=== PATIENT | male | born 1960 | race Caucasian/White ===

== ENCOUNTER 2019-01-08 14:48 | Inpatient (IN) | payer OTHER ==
[2019-01-08] MEDS: CEFEPIME 2GM/50 ML (PMX) 50 ML IVPB (18:22)
[2019-01-08] MEDS: SODIUM CHLORIDE 0.9% 1L BAG IV* (18:23)
[2019-01-08] MEDS: ACETAMINOPHEN 325 MG TAB PO (18:23)
[2019-01-08 18:33] LABS: ADD MAN DIFF? NO
[2019-01-08 18:36] LABS: WHITE BLOOD COUNT 13.7 10^3/ul (4.8-10.8)
[2019-01-08 18:36] LABS: BASOPHILS % 0.3 % (0.0-2.0); EOSINOPHILS % 0.1 % (0.0-7.0); HEMATOCRIT 41.8 % (42.0-52.0); HEMOGLOBIN 13.3 g/dl (14.0-18.0); LYMPHOCYTES # 1.2 10^3/ul (0.8-2.9); LYMPHOCYTES % 8.4 % (15.0-51.0); MEAN CORPUSCULAR HEMOGLOBIN 24.6 pg (29.0-33.0); MEAN CORPUSCULAR HGB CONC 31.8 g/dl (32.0-37.0); MEAN CORPUSCULAR VOLUME 77.3 fl (82.0-101.0); MEAN PLATELET VOLUME 10.7 fl (7.4-10.4); MONOCYTE # 0.8 10^3/ul (0.3-0.9); MONOCYTES % 5.5 % (0.0-11.0); NEUTROPHIL # 11.7 10^3/ul (1.6-7.5); PLATELET COUNT 180 10^3/UL (140-415); RED BLOOD COUNT 5.41 10^6/ul (4.70-6.10); RED CELL DISTRIBUTION WIDTH 15.8 % (11.5-14.5)
[2019-01-08 18:40] LABS: PROTIME 12.3 Sec (11.9-14.9)
[2019-01-08 18:41] LABS: PARTIAL THROMBOPLASTIN TIME 27.6 Sec (23.0-35.0)
[2019-01-08 18:49] LABS: ALANINE AMINOTRANSFERASE 40 IU/L (13-69); ALBUMIN 3.8 g/dl (3.3-4.9); ALBUMIN/GLOBULIN RATIO 1.18; ALKALINE PHOSPHATASE 183 IU/L (42-121); ANION GAP 11 (5-13); ASPARTATE AMINO TRANSFERASE 59 IU/L (15-46); BILIRUBIN,INDIRECT 0.2 mg/dl (0-1.1); BILIRUBIN,TOTAL 0.2 mg/dl (0.2-1.3); BLOOD UREA NITROGEN 38 mg/dl (7-20); CALCIUM 9.7 mg/dl (8.4-10.2); CARBON DIOXIDE 22 mmol/L (21-31); CHLORIDE 104 mmol/L (97-110); CREATININE 1.31 mg/dl (0.61-1.24); Estimated GFR 56 mL/min (>60); GLUCOSE 356 mg/dl (70-220); POTASSIUM 4.6 mmol/L (3.5-5.1); SODIUM 137 mmol/L (135-144)
[2019-01-08] MEDS: FUROSEMIDE 40 MG INJ IV (19:00)
[2019-01-08 19:01] LABS: TROPONIN-I 0.018 ng/ml (0.000-0.120)
[2019-01-08] MEDS: VANCOMYCIN 1 GM (PMX) 250 ML IVPB (19:06)
[2019-01-08] MEDS: ALBUTEROL 0.5% (NEB) 2.5 MG/0.5 ML AMP INH (19:37)
[2019-01-08 19:39] LABS: B-TYPE NATRIURETIC PEPTIDE 2490 PG/ML (0-125)
[2019-01-08] MEDS ORDERED: ACETAMINOPHEN 325 MG TAB PO (21:30)
[2019-01-08] MEDS ORDERED: ONDANSETRON 4 MG INJ IV (21:30)
[2019-01-08 21:56] LABS: ADD UMIC YES; UR AMORPHOUS CRYSTAL FEW /HPF (NONE SEEN); UR ASCORBIC ACID NEGATIVE (NEGATIVE); UR BACTERIA FEW /HPF (NONE SEEN); UR BILIRUBIN (Dip) NEGATIVE (NEGATIVE); UR BLOOD (Dip) 2+ mg/dL (NEGATIVE); UR CLARITY SLIGHTLY CLOUDY (CLEAR); UR COLOR YELLOW (YELLOW); UR GLUCOSE (Dip) 1+ mg/dL (NEGATIVE); UR HYALINE CAST FEW /HPF (NONE SEEN); UR KETONES (Dip) NEGATIVE (NEGATIVE); UR LEUKOCYTE ESTERASE (Dip) NEGATIVE Leu/ul (NEGATIVE); UR NITRITE (Dip) NEGATIVE (NEGATIVE); UR RBC 11 /HPF (0-5); UR SPECIFIC GRAVITY (Dip) 1.013 (1.003-1.030); UR TOTAL PROTEIN (Dip) 2+ mg/dl (NEGATIVE); UR UROBILINOGEN (Dip) NEGATIVE (NEGATIVE); UR WBC 2 /HPF (0-5)
[2019-01-09 00:06] LABS: LACTIC ACID 2.1 mmol/L (0.5-2.0)
[2019-01-09] MEDS: morphine 4 MG/ML VIAL IV (01:41)
[2019-01-09] MEDS ORDERED: NITROGLYCERIN (SL) 0.4 MG TAB SL (05:00)
[2019-01-09] MEDS ORDERED: ALPRAZOLAM 0.25 MG TAB PO (05:00)
[2019-01-09] MEDS ORDERED: NACL 0.9% 3 ML SYG IV (05:00)
[2019-01-09] MEDS ORDERED: GLUCOSE GEL 15 GRAM TUBE BUCCAL (06:00)
[2019-01-09] MEDS ORDERED: DEXTROSE 50% 50 ML SYRINGE IV ×2 (06:00)
[2019-01-09] MEDS ORDERED: GLUCAGON 1 MG INJ IM (06:00)
[2019-01-09] MEDS ORDERED: GLUCOSE GEL 15 GRAM TUBE PO ×2 (06:00)
[2019-01-09 06:05] LABS: ADD MAN DIFF? NO
[2019-01-09 06:09] LABS: BASOPHIL # 0.1 10^3/ul (0.0-0.1); BASOPHILS % 0.3 % (0.0-2.0); HEMATOCRIT 36.7 % (42.0-52.0); HEMOGLOBIN 11.5 g/dl (14.0-18.0); LYMPHOCYTES # 1.7 10^3/ul (0.8-2.9); LYMPHOCYTES % 11.5 % (15.0-51.0); MEAN CORPUSCULAR HEMOGLOBIN 24.4 pg (29.0-33.0); MEAN CORPUSCULAR HGB CONC 31.3 g/dl (32.0-37.0); MEAN CORPUSCULAR VOLUME 77.8 fl (82.0-101.0); MEAN PLATELET VOLUME 11.5 fl (7.4-10.4); MONOCYTE # 0.8 10^3/ul (0.3-0.9); MONOCYTES % 5.3 % (0.0-11.0); NEUTROPHIL # 11.8 10^3/ul (1.6-7.5); NEUTROPHILS % 81.9 % (39.0-77.0); PLATELET COUNT 172 10^3/UL (140-415); RED BLOOD COUNT 4.72 10^6/ul (4.70-6.10); RED CELL DISTRIBUTION WIDTH 16.1 % (11.5-14.5)
[2019-01-09 06:09] LABS: WHITE BLOOD COUNT 14.5 10^3/ul (4.8-10.8)
[2019-01-09] MEDS: traMADol 50 MG TAB PO ×2 (06:20→21:45)
[2019-01-09 06:29] LABS: HEMOGLOBIN A1C 11.8 % (0-5.9)
[2019-01-09 06:32] LABS: CREATINE KINASE 59 IU/L (23-200)
[2019-01-09 06:44] LABS: CK INDEX 1.9; CK-MB 1.14 ng/ml (0.0-2.4); TROPONIN-I 0.037 ng/ml (0.000-0.120)
[2019-01-09 07:38] LABS: ALANINE AMINOTRANSFERASE 56 IU/L (13-69); ALBUMIN 3.2 g/dl (3.3-4.9); ALKALINE PHOSPHATASE 138 IU/L (42-121); ANION GAP 10 (5-13); ASPARTATE AMINO TRANSFERASE 48 IU/L (15-46); BLOOD UREA NITROGEN 42 mg/dl (7-20); CALCIUM 8.7 mg/dl (8.4-10.2); CARBON DIOXIDE 26 mmol/L (21-31); CHLORIDE 100 mmol/L (97-110); CHOL/HDL RATIO 4.3 RATIO; CHOLESTEROL 147 mg/dl (100-200); CREATININE 1.82 mg/dl (0.61-1.24); Estimated GFR 38 mL/min (>60); GLUCOSE 330 mg/dl (70-220); HDL CHOLESTEROL 34 mg/dl (30-78); LDL CHOLESTEROL,CALCULATED 80 mg/dl; MAGNESIUM 1.9 mg/dl (1.7-2.5); POTASSIUM 5.1 mmol/L (3.5-5.1); SODIUM 136 mmol/L (135-144); TOTAL PROTEIN 6.1 g/dl (6.1-8.1); TRIGLYCERIDES 167 mg/dl (0-149)
[2019-01-09] MEDS: ALBUTEROL/IPRATROPIUM (NEB) 3 ML AMP HHN (08:40)
[2019-01-09] MEDS: INSULIN ASPART [NOVOLOG] 3 ML PEN SC ×7 (08:54→21:00)
[2019-01-09] MEDS: RANOLAZINE (SR) 500 MG TAB PO ×2 (08:56→21:43)
[2019-01-09] MEDS: ISOSORBIDE DINITRATE 20 MG TAB PO ×3 (08:56→21:00)
[2019-01-09] MEDS: VALPROIC ACID 250 MG CAP PO ×2 (08:57→21:44)
[2019-01-09] MEDS: GABAPENTIN 300 MG CAP PO ×3 (08:57→21:44)
[2019-01-09] MEDS: FISH OIL 1,000 MG CAP PO ×2 (08:58→21:44)
[2019-01-09] MEDS: ASPIRIN 81 MG TAB PO (08:59)
[2019-01-09] MEDS: FUROSEMIDE 40 MG TAB PO (08:59)
[2019-01-09] MEDS: INSULIN GLARGINE [LANTus] (100 UNITS/ML) SYG SC (09:13)
[2019-01-09] MEDS: HEPARIN 5,000 UNIT/1 ML VIAL SC ×2 (09:14→21:56)
[2019-01-09 09:27] LABS: BILIRUBIN,INDIRECT 0.2 mg/dl (0-1.1); BILIRUBIN,TOTAL 0.2 mg/dl (0.2-1.3)
[2019-01-09] MEDS ORDERED: VANCOMYCIN IV PER PHARMACY XX (09:30)
[2019-01-09] MEDS: ONDANSETRON 4 MG INJ IV (09:43)
[2019-01-09 11:16] LABS: CREATINE KINASE 58 IU/L (23-200)
[2019-01-09 11:27] LABS: CK INDEX 1.6; CK-MB 0.95 ng/ml (0.0-2.4); TROPONIN-I 0.017 ng/ml (0.000-0.120)
[2019-01-09] MEDS: ACETAMINOPHEN 325 MG TAB PO (12:23)
[2019-01-09] MEDS: VANCOMYCIN HCL 2 GM in SOD CHLORIDE 0.9% 500 ML IVPB (12:42)
[2019-01-09] MEDS: SOD CHLORIDE 0.9% 1,000 ML IV (15:46)
[2019-01-09] MEDS: CEFTRIAXONE 1 GM/50 ML (PMX) 50 ML IVPB (15:46)
[2019-01-09] MEDS: AZITHROMYCIN 500MG/NS (PMX) 250 ML IVPB (17:40)
[2019-01-09] MEDS: ATORVASTATIN 80 MG TAB PO (21:45)
[2019-01-09] MEDS: MONTELUKAST 10 MG TAB PO (21:46)
[2019-01-10] MEDS: ACCU-CHEK XX (01:37)
[2019-01-10 01:43] LABS: SODIUM,URINE RANDOM < 13 mmol/L (30-90)
[2019-01-10 01:46] LABS: CREATININE,URINE RANDOM 145.78 mg/dl (20-370)
[2019-01-10 01:55] LABS: PROTEIN/CREAT RATIO 3.77 RATIO
[2019-01-10] MEDS: SOD CHLORIDE 0.9% 1,000 ML IV ×3 (03:14→20:35)
[2019-01-10 06:21] LABS: ADD MAN DIFF? NO
[2019-01-10 06:23] LABS: BASOPHILS % 0.4 % (0.0-2.0); EOSINOPHILS # 0.2 10^3/ul (0.0-0.5); EOSINOPHILS % 1.6 % (0.0-7.0); HEMATOCRIT 34.4 % (42.0-52.0); HEMOGLOBIN 10.7 g/dl (14.0-18.0); LYMPHOCYTES # 1.9 10^3/ul (0.8-2.9); LYMPHOCYTES % 21.1 % (15.0-51.0); MEAN CORPUSCULAR HEMOGLOBIN 24.7 pg (29.0-33.0); MEAN CORPUSCULAR HGB CONC 31.1 g/dl (32.0-37.0); MEAN CORPUSCULAR VOLUME 79.3 fl (82.0-101.0); MEAN PLATELET VOLUME 10.9 fl (7.4-10.4); MONOCYTE # 0.9 10^3/ul (0.3-0.9); MONOCYTES % 9.8 % (0.0-11.0); NEUTROPHIL # 6.1 10^3/ul (1.6-7.5); NEUTROPHILS % 66.6 % (39.0-77.0); PLATELET COUNT 153 10^3/UL (140-415); RED BLOOD COUNT 4.34 10^6/ul (4.70-6.10); RED CELL DISTRIBUTION WIDTH 16.4 % (11.5-14.5)
[2019-01-10 06:23] LABS: WHITE BLOOD COUNT 9.2 10^3/ul (4.8-10.8)
[2019-01-10 06:47] LABS: CREATINE KINASE 39 IU/L (23-200)
[2019-01-10 06:47] LABS: URIC ACID 9.2 mg/dl (3.1-7.9)
[2019-01-10 06:57] LABS: ANION GAP 7 (5-13); BLOOD UREA NITROGEN 47 mg/dl (7-20); CALCIUM 7.9 mg/dl (8.4-10.2); CARBON DIOXIDE 26 mmol/L (21-31); CHLORIDE 102 mmol/L (97-110); CREATININE 1.93 mg/dl (0.61-1.24); Estimated GFR 36 mL/min (>60); GLUCOSE 127 mg/dl (70-220); MAGNESIUM 2.2 mg/dl (1.7-2.5); PHOSPHORUS 4.1 mg/dl (2.5-4.9); POTASSIUM 4.6 mmol/L (3.5-5.1); SODIUM 135 mmol/L (135-144)
[2019-01-10] MEDS: INSULIN ASPART [NOVOLOG] 3 ML PEN SC ×7 (07:55→20:38)
[2019-01-10] MEDS: INSULIN GLARGINE [LANTus] (100 UNITS/ML) SYG SC ×2 (08:00→08:54)
[2019-01-10] MEDS: HEPARIN 5,000 UNIT/1 ML VIAL SC ×2 (08:44→20:30)
[2019-01-10] MEDS: GABAPENTIN 300 MG CAP PO ×3 (08:45→20:16)
[2019-01-10] MEDS: ASPIRIN 81 MG TAB PO (08:45)
[2019-01-10] MEDS: traMADol 50 MG TAB PO (08:46)
[2019-01-10] MEDS: RANOLAZINE (SR) 500 MG TAB PO ×2 (08:46→20:15)
[2019-01-10] MEDS: FUROSEMIDE 40 MG TAB PO (08:46)
[2019-01-10] MEDS: FISH OIL 1,000 MG CAP PO ×2 (08:46→20:15)
[2019-01-10] MEDS: VALPROIC ACID 250 MG CAP PO ×2 (08:46→20:15)
[2019-01-10] MEDS: ISOSORBIDE DINITRATE 20 MG TAB PO ×3 (08:47→20:18)
[2019-01-10] MEDS: LIDOCAINE 1% (MDV) 20 ML INJ (11:05)
[2019-01-10] MEDS: morphine 2 MG INJ IV ×3 (14:21→23:39)
[2019-01-10 15:00] LABS: LACTATE DEHYDROGENASE 831 IU/L (313-618)
[2019-01-10] MEDS: CEFTRIAXONE 1 GM/50 ML (PMX) 50 ML IVPB (15:06)
[2019-01-10 15:09] LABS: IMMUNOGLOBULIN A 166 mg/dl (70-400); IMMUNOGLOBULIN G 473 mg/dl (700-1600); IMMUNOGLOBULIN M 237 mg/dl (40-230)
[2019-01-10] MEDS: AZITHROMYCIN 500MG/NS (PMX) 250 ML IVPB (17:38)
[2019-01-10 18:24] LABS: HIV 1&2 ANTIBODY NEGATIVE (NEGATIVE)
[2019-01-10] MEDS: MONTELUKAST 10 MG TAB PO (20:15)
[2019-01-10] MEDS: ATORVASTATIN 80 MG TAB PO (20:16)
[2019-01-11] MEDS ORDERED: VANCOMYCIN IV PER PHARMACY XX (02:30)
[2019-01-11] MEDS: ACCU-CHEK XX (02:36)
[2019-01-11] MEDS: VANCOMYCIN HCL 1.5 GM in SOD CHLORIDE 0.9% 250 ML IVPB (03:37)
[2019-01-11] MEDS: morphine 2 MG INJ IV ×4 (03:43→20:34)
[2019-01-11 07:03] LABS: PROTEIN, TOTAL 5.3 g/dL (6.1-8.1)
[2019-01-11 07:06] LABS: ANION GAP 9 (5-13); BLOOD UREA NITROGEN 45 mg/dl (7-20); CARBON DIOXIDE 24 mmol/L (21-31); CHLORIDE 104 mmol/L (97-110); CREATININE 1.96 mg/dl (0.61-1.24); Estimated GFR 35 mL/min (>60); GLUCOSE 200 mg/dl (70-220); SODIUM 137 mmol/L (135-144)
[2019-01-11] MEDS: SOD CHLORIDE 0.9% 1,000 ML IV ×2 (07:30→16:30)
[2019-01-11] MEDS: INSULIN ASPART [NOVOLOG] 3 ML PEN SC ×7 (08:15→20:33)
[2019-01-11] MEDS: FUROSEMIDE 40 MG TAB PO (08:22)
[2019-01-11] MEDS: FISH OIL 1,000 MG CAP PO ×2 (08:22→20:20)
[2019-01-11] MEDS: ISOSORBIDE DINITRATE 20 MG TAB PO ×3 (08:23→20:22)
[2019-01-11] MEDS: ASPIRIN 81 MG TAB PO (08:23)
[2019-01-11] MEDS: VALPROIC ACID 250 MG CAP PO ×2 (08:23→20:20)
[2019-01-11] MEDS: RANOLAZINE (SR) 500 MG TAB PO ×2 (08:23→20:21)
[2019-01-11] MEDS: GABAPENTIN 300 MG CAP PO ×3 (08:23→20:21)
[2019-01-11] MEDS: HEPARIN 5,000 UNIT/1 ML VIAL SC ×2 (08:47→20:24)
[2019-01-11] MEDS: INSULIN GLARGINE [LANTus] (100 UNITS/ML) SYG SC (08:47)
[2019-01-11] MEDS ORDERED: AZITHROMYCIN 250 MG TAB PO (09:00)
[2019-01-11] MEDS: CEFTRIAXONE 1 GM/50 ML (PMX) 50 ML IVPB (14:40)
[2019-01-11 16:26] LABS: ALBUMIN 2.6 g/dL (3.8-4.8); ALPHA-1-GLOBULINS 0.5 g/dL (0.2-0.3); BETA 2 GLOBULINS 0.4 g/dL (0.2-0.5); BETA GLOBULINS 0.4 g/dL (0.4-0.6); GAMMA GLOBULINS 0.6 g/dL (0.8-1.7)
[2019-01-11 17:11] LABS: BETA-2 MICROGLOBULIN 9.33 mg/L (< OR = 2.51)
[2019-01-11] MEDS: ATORVASTATIN 80 MG TAB PO (20:20)
[2019-01-11] MEDS: MONTELUKAST 10 MG TAB PO (20:21)
[2019-01-12] MEDS: morphine 2 MG INJ IV ×4 (00:37→17:37)
[2019-01-12] MEDS: traMADol 50 MG TAB PO ×3 (01:33→23:53)
[2019-01-12] MEDS: VANCOMYCIN HCL 1.5 GM in SOD CHLORIDE 0.9% 250 ML IVPB (02:30)
[2019-01-12] MEDS: ACCU-CHEK XX (02:30)
[2019-01-12] MEDS: SOD CHLORIDE 0.9% 1,000 ML IV ×4 (03:30→17:44)
[2019-01-12 06:21] LABS: ADD MAN DIFF? NO
[2019-01-12 06:26] LABS: WHITE BLOOD COUNT 5.4 10^3/ul (4.8-10.8)
[2019-01-12 06:26] LABS: BASOPHILS % 0.4 % (0.0-2.0); EOSINOPHILS # 0.1 10^3/ul (0.0-0.5); EOSINOPHILS % 2.2 % (0.0-7.0); HEMATOCRIT 34.9 % (42.0-52.0); HEMOGLOBIN 10.7 g/dl (14.0-18.0); LYMPHOCYTES # 1.2 10^3/ul (0.8-2.9); LYMPHOCYTES % 22.3 % (15.0-51.0); MEAN CORPUSCULAR HEMOGLOBIN 24.6 pg (29.0-33.0); MEAN CORPUSCULAR HGB CONC 30.7 g/dl (32.0-37.0); MEAN CORPUSCULAR VOLUME 80.2 fl (82.0-101.0); MEAN PLATELET VOLUME 11.2 fl (7.4-10.4); MONOCYTE # 0.5 10^3/ul (0.3-0.9); NEUTROPHIL # 3.5 10^3/ul (1.6-7.5); NEUTROPHILS % 64.4 % (39.0-77.0); PLATELET COUNT 166 10^3/UL (140-415); RED BLOOD COUNT 4.35 10^6/ul (4.70-6.10); RED CELL DISTRIBUTION WIDTH 16.1 % (11.5-14.5)
[2019-01-12 06:50] LABS: ANION GAP 7 (5-13); BLOOD UREA NITROGEN 35 mg/dl (7-20); CALCIUM 8.5 mg/dl (8.4-10.2); CARBON DIOXIDE 27 mmol/L (21-31); CHLORIDE 105 mmol/L (97-110); CREATININE 1.88 mg/dl (0.61-1.24); Estimated GFR 37 mL/min (>60); GLUCOSE 181 mg/dl (70-220); POTASSIUM 4.7 mmol/L (3.5-5.1); SODIUM 139 mmol/L (135-144)
[2019-01-12] MEDS: INSULIN ASPART [NOVOLOG] 3 ML PEN SC ×7 (07:45→20:24)
[2019-01-12] MEDS: INSULIN GLARGINE [LANTus] (100 UNITS/ML) SYG SC (07:54)
[2019-01-12] MEDS ORDERED: INSULIN GLARGINE [LANTus] (100 UNITS/ML) SYG SC (08:00)
[2019-01-12] MEDS: VALPROIC ACID 250 MG CAP PO ×2 (08:16→20:12)
[2019-01-12] MEDS: RANOLAZINE (SR) 500 MG TAB PO ×2 (08:16→20:03)
[2019-01-12] MEDS: FUROSEMIDE 40 MG TAB PO (08:17)
[2019-01-12] MEDS: GABAPENTIN 300 MG CAP PO ×3 (08:17→20:12)
[2019-01-12] MEDS: FISH OIL 1,000 MG CAP PO ×2 (08:18→20:12)
[2019-01-12] MEDS: ISOSORBIDE DINITRATE 20 MG TAB PO ×4 (08:18→20:04)
[2019-01-12] MEDS: ASPIRIN 81 MG TAB PO (08:18)
[2019-01-12] MEDS: HEPARIN 5,000 UNIT/1 ML VIAL SC ×2 (08:20→20:24)
[2019-01-12] MEDS: CEFTRIAXONE 1 GM/50 ML (PMX) 50 ML IVPB (14:47)
[2019-01-12] MEDS: morphine 4 MG/ML VIAL IV (20:03)
[2019-01-12] MEDS: ATORVASTATIN 80 MG TAB PO (20:12)
[2019-01-12] MEDS: MONTELUKAST 10 MG TAB PO (20:12)
[2019-01-13] MEDS: morphine 4 MG/ML VIAL IV ×4 (02:25→21:29)
[2019-01-13] MEDS: ACCU-CHEK XX (02:27)
[2019-01-13 02:47] LABS: VANCOMYCIN,TROUGH 11.6 ug/ml (10.0-20.0)
[2019-01-13] MEDS: VANCOMYCIN HCL 1.5 GM in SOD CHLORIDE 0.9% 250 ML IVPB (03:04)
[2019-01-13 06:36] LABS: ADD MAN DIFF? NO
[2019-01-13 06:43] LABS: BASOPHILS % 0.5 % (0.0-2.0); EOSINOPHILS # 0.1 10^3/ul (0.0-0.5); EOSINOPHILS % 1.7 % (0.0-7.0); HEMATOCRIT 34.2 % (42.0-52.0); HEMOGLOBIN 10.5 g/dl (14.0-18.0); LYMPHOCYTES # 1.7 10^3/ul (0.8-2.9); LYMPHOCYTES % 22.8 % (15.0-51.0); MEAN CORPUSCULAR HEMOGLOBIN 24.4 pg (29.0-33.0); MEAN CORPUSCULAR HGB CONC 30.7 g/dl (32.0-37.0); MEAN CORPUSCULAR VOLUME 79.5 fl (82.0-101.0); MEAN PLATELET VOLUME 10.4 fl (7.4-10.4); MONOCYTE # 0.7 10^3/ul (0.3-0.9); MONOCYTES % 8.8 % (0.0-11.0); NEUTROPHIL # 4.9 10^3/ul (1.6-7.5); PLATELET COUNT 185 10^3/UL (140-415); RED CELL DISTRIBUTION WIDTH 16.2 % (11.5-14.5)
[2019-01-13 06:43] LABS: WHITE BLOOD COUNT 7.5 10^3/ul (4.8-10.8)
[2019-01-13 06:59] LABS: ANION GAP 8 (5-13); BLOOD UREA NITROGEN 26 mg/dl (7-20); CALCIUM 8.5 mg/dl (8.4-10.2); CARBON DIOXIDE 27 mmol/L (21-31); CHLORIDE 105 mmol/L (97-110); CREATININE 1.75 mg/dl (0.61-1.24); Estimated GFR 40 mL/min (>60); GLUCOSE 155 mg/dl (70-220); SODIUM 140 mmol/L (135-144)
[2019-01-13] MEDS: INSULIN ASPART [NOVOLOG] 3 ML PEN SC ×8 (07:44→19:50)
[2019-01-13] MEDS: INSULIN GLARGINE [LANTus] (100 UNITS/ML) SYG SC (07:54)
[2019-01-13] MEDS: ISOSORBIDE DINITRATE 20 MG TAB PO ×3 (07:55→19:50)
[2019-01-13] MEDS: ASPIRIN 81 MG TAB PO (08:27)
[2019-01-13] MEDS: FUROSEMIDE 40 MG TAB PO (08:27)
[2019-01-13] MEDS: GABAPENTIN 300 MG CAP PO ×3 (08:28→19:49)
[2019-01-13] MEDS: HEPARIN 5,000 UNIT/1 ML VIAL SC ×2 (08:32→20:01)
[2019-01-13] MEDS: SOD CHLORIDE 0.9% 1,000 ML IV (09:30)
[2019-01-13] MEDS: RANOLAZINE (SR) 500 MG TAB PO ×2 (10:04→19:48)
[2019-01-13] MEDS: FISH OIL 1,000 MG CAP PO ×2 (10:04→19:49)
[2019-01-13] MEDS: VALPROIC ACID 250 MG CAP PO ×2 (10:35→19:49)
[2019-01-13] MEDS: CEFTRIAXONE 1 GM/50 ML (PMX) 50 ML IVPB (14:59)
[2019-01-13] MEDS: MONTELUKAST 10 MG TAB PO (19:49)
[2019-01-13] MEDS: ATORVASTATIN 80 MG TAB PO (19:49)
[2019-01-14] MEDS: VANCOMYCIN HCL 1.5 GM in SOD CHLORIDE 0.9% 250 ML IVPB (02:25)
[2019-01-14] MEDS: ACCU-CHEK XX (02:30)
[2019-01-14 06:21] LABS: ADD MAN DIFF? NO
[2019-01-14 06:49] LABS: BASOPHILS % 0.5 % (0.0-2.0); EOSINOPHILS # 0.1 10^3/ul (0.0-0.5); EOSINOPHILS % 1.7 % (0.0-7.0); HEMATOCRIT 34.7 % (42.0-52.0); HEMOGLOBIN 10.7 g/dl (14.0-18.0); LYMPHOCYTES # 1.4 10^3/ul (0.8-2.9); MEAN CORPUSCULAR HEMOGLOBIN 24.7 pg (29.0-33.0); MEAN CORPUSCULAR HGB CONC 30.8 g/dl (32.0-37.0); MEAN PLATELET VOLUME 10.8 fl (7.4-10.4); MONOCYTE # 0.7 10^3/ul (0.3-0.9); MONOCYTES % 8.5 % (0.0-11.0); NEUTROPHILS % 70.5 % (39.0-77.0); PLATELET COUNT 198 10^3/UL (140-415); RED BLOOD COUNT 4.34 10^6/ul (4.70-6.10); RED CELL DISTRIBUTION WIDTH 16.4 % (11.5-14.5)
[2019-01-14 06:49] LABS: WHITE BLOOD COUNT 8.4 10^3/ul (4.8-10.8)
[2019-01-14 06:51] LABS: ANION GAP 11 (5-13); BLOOD UREA NITROGEN 28 mg/dl (7-20); CALCIUM 8.7 mg/dl (8.4-10.2); CARBON DIOXIDE 25 mmol/L (21-31); CHLORIDE 104 mmol/L (97-110); Estimated GFR 36 mL/min (>60); GLUCOSE 106 mg/dl (70-220); POTASSIUM 4.4 mmol/L (3.5-5.1); SODIUM 140 mmol/L (135-144)
[2019-01-14] MEDS: INSULIN ASPART [NOVOLOG] 3 ML PEN SC ×8 (07:50→20:46)
[2019-01-14] MEDS: INSULIN GLARGINE [LANTus] (100 UNITS/ML) SYG SC (08:00)
[2019-01-14] MEDS: VALPROIC ACID 250 MG CAP PO ×2 (08:06→21:45)
[2019-01-14] MEDS: FISH OIL 1,000 MG CAP PO ×2 (08:07→20:21)
[2019-01-14] MEDS: GABAPENTIN 300 MG CAP PO ×3 (08:07→20:21)
[2019-01-14] MEDS: RANOLAZINE (SR) 500 MG TAB PO ×2 (08:07→20:17)
[2019-01-14] MEDS: FUROSEMIDE 40 MG TAB PO (08:08)
[2019-01-14] MEDS: ASPIRIN 81 MG TAB PO (08:08)
[2019-01-14] MEDS: ISOSORBIDE DINITRATE 20 MG TAB PO ×3 (08:11→20:46)
[2019-01-14] MEDS: HEPARIN 5,000 UNIT/1 ML VIAL SC ×2 (08:13→20:44)
[2019-01-14] MEDS: morphine 4 MG/ML VIAL IV ×2 (12:39→20:23)
[2019-01-14] MEDS: CEFTRIAXONE 1 GM/50 ML (PMX) 50 ML IVPB (17:19)
[2019-01-14] MEDS: ATORVASTATIN 80 MG TAB PO (20:21)
[2019-01-14] MEDS: MONTELUKAST 10 MG TAB PO (20:21)
[2019-01-15] MEDS: morphine 4 MG/ML VIAL IV ×3 (02:04→10:00)
[2019-01-15 03:02] LABS: VANCOMYCIN,TROUGH 14.5 ug/ml (10.0-20.0)
[2019-01-15] MEDS: VANCOMYCIN HCL 1.5 GM in SOD CHLORIDE 0.9% 250 ML IVPB (06:16)
[2019-01-15 07:18] LABS: ANION GAP 10 (5-13); BLOOD UREA NITROGEN 25 mg/dl (7-20); CALCIUM 8.8 mg/dl (8.4-10.2); CARBON DIOXIDE 27 mmol/L (21-31); CHLORIDE 104 mmol/L (97-110); CREATININE 1.93 mg/dl (0.61-1.24); Estimated GFR 36 mL/min (>60); GLUCOSE 159 mg/dl (70-220); POTASSIUM 4.5 mmol/L (3.5-5.1); SODIUM 141 mmol/L (135-144)
[2019-01-15] MEDS: GABAPENTIN 300 MG CAP PO ×3 (08:55→21:15)
[2019-01-15] MEDS: ASPIRIN 81 MG TAB PO (08:55)
[2019-01-15] MEDS: FISH OIL 1,000 MG CAP PO ×2 (08:55→21:14)
[2019-01-15] MEDS: FUROSEMIDE 40 MG TAB PO (08:57)
[2019-01-15] MEDS: HEPARIN 5,000 UNIT/1 ML VIAL SC ×2 (08:58→21:23)
[2019-01-15] MEDS: INSULIN ASPART [NOVOLOG] 3 ML PEN SC ×7 (08:59→21:00)
[2019-01-15] MEDS: INSULIN GLARGINE [LANTus] (100 UNITS/ML) SYG SC (10:20)
[2019-01-15] MEDS: ISOSORBIDE DINITRATE 20 MG TAB PO ×3 (11:01→21:15)
[2019-01-15] MEDS: VALPROIC ACID 250 MG CAP PO ×2 (11:01→21:15)
[2019-01-15] MEDS: RANOLAZINE (SR) 500 MG TAB PO ×2 (11:01→13:01)
[2019-01-15] MEDS: traMADol 50 MG TAB PO ×2 (13:19→19:46)
[2019-01-15] MEDS: CEFTRIAXONE 1 GM/50 ML (PMX) 50 ML IVPB (15:40)
[2019-01-15] MEDS: MONTELUKAST 10 MG TAB PO (21:15)
[2019-01-15] MEDS: ATORVASTATIN 80 MG TAB PO (21:16)
[2019-01-15] MEDS: morphine 2 MG INJ IV (22:20)
[2019-01-15] MEDS: DAPTOMYCIN 470 MG in SOD CHLORIDE 0.9% 100 ML IVPB (23:23)
[2019-01-16] MEDS: morphine 2 MG INJ IV ×4 (05:17→21:46)
[2019-01-16] MEDS: RANOLAZINE (SR) 500 MG TAB PO ×2 (08:45→21:35)
[2019-01-16] MEDS: ISOSORBIDE DINITRATE 20 MG TAB PO ×3 (08:46→21:32)
[2019-01-16] MEDS: VALPROIC ACID 250 MG CAP PO ×2 (08:46→21:45)
[2019-01-16] MEDS: FISH OIL 1,000 MG CAP PO ×2 (08:47→21:31)
[2019-01-16] MEDS: GABAPENTIN 300 MG CAP PO ×3 (08:48→21:31)
[2019-01-16] MEDS: ASPIRIN 81 MG TAB PO (08:48)
[2019-01-16] MEDS: FUROSEMIDE 40 MG TAB PO (08:48)
[2019-01-16] MEDS: INSULIN GLARGINE [LANTus] (100 UNITS/ML) SYG SC (08:54)
[2019-01-16] MEDS: HEPARIN 5,000 UNIT/1 ML VIAL SC ×2 (08:56→21:33)
[2019-01-16] MEDS: INSULIN ASPART [NOVOLOG] 3 ML PEN SC ×7 (08:56→21:00)
[2019-01-16] MEDS: ATORVASTATIN 80 MG TAB PO (21:31)
[2019-01-16] MEDS: MONTELUKAST 10 MG TAB PO (21:31)
[2019-01-16] MEDS: DAPTOMYCIN 470 MG in SOD CHLORIDE 0.9% 100 ML IVPB (21:54)
[2019-01-17] MEDS: morphine 2 MG INJ IV ×5 (03:21→23:22)
[2019-01-17 06:12] LABS: ADD MAN DIFF? NO
[2019-01-17 06:17] LABS: WHITE BLOOD COUNT 6.5 10^3/ul (4.8-10.8)
[2019-01-17 06:17] LABS: BASOPHILS % 0.3 % (0.0-2.0); EOSINOPHILS # 0.2 10^3/ul (0.0-0.5); EOSINOPHILS % 2.6 % (0.0-7.0); HEMATOCRIT 30.9 % (42.0-52.0); HEMOGLOBIN 9.7 g/dl (14.0-18.0); LYMPHOCYTES # 1.5 10^3/ul (0.8-2.9); LYMPHOCYTES % 22.6 % (15.0-51.0); MEAN CORPUSCULAR HEMOGLOBIN 24.4 pg (29.0-33.0); MEAN CORPUSCULAR HGB CONC 31.4 g/dl (32.0-37.0); MEAN CORPUSCULAR VOLUME 77.6 fl (82.0-101.0); MEAN PLATELET VOLUME 10.4 fl (7.4-10.4); MONOCYTE # 0.6 10^3/ul (0.3-0.9); MONOCYTES % 8.8 % (0.0-11.0); NEUTROPHIL # 4.2 10^3/ul (1.6-7.5); NEUTROPHILS % 64.8 % (39.0-77.0); PLATELET COUNT 245 10^3/UL (140-415); RED BLOOD COUNT 3.98 10^6/ul (4.70-6.10); RED CELL DISTRIBUTION WIDTH 16.4 % (11.5-14.5)
[2019-01-17 06:43] LABS: CREATINE KINASE 28 IU/L (23-200)
[2019-01-17 06:51] LABS: B-TYPE NATRIURETIC PEPTIDE 5150 PG/ML (0-125)
[2019-01-17 06:53] LABS: ALANINE AMINOTRANSFERASE 46 IU/L (13-69); ALBUMIN 2.8 g/dl (3.3-4.9); ALBUMIN/GLOBULIN RATIO 1.03; ALKALINE PHOSPHATASE 249 IU/L (42-121); ANION GAP 6 (5-13); ASPARTATE AMINO TRANSFERASE 50 IU/L (15-46); BLOOD UREA NITROGEN 30 mg/dl (7-20); CALCIUM 8.5 mg/dl (8.4-10.2); CARBON DIOXIDE 27 mmol/L (21-31); CHLORIDE 106 mmol/L (97-110); CHOL/HDL RATIO 5.9 RATIO; CHOLESTEROL 119 mg/dl (100-200); Estimated GFR 36 mL/min (>60); GLUCOSE 133 mg/dl (70-220); HDL CHOLESTEROL 20 mg/dl (30-78); LDL CHOLESTEROL,CALCULATED 74 mg/dl; POTASSIUM 4.5 mmol/L (3.5-5.1); SODIUM 139 mmol/L (135-144); TOTAL PROTEIN 5.5 g/dl (6.1-8.1); TRIGLYCERIDES 123 mg/dl (0-149)
[2019-01-17 06:56] LABS: CK INDEX 6.9; CK-MB 1.94 ng/ml (0.0-2.4); TROPONIN-I < 0.012 ng/ml (0.000-0.120)
[2019-01-17 07:25] LABS: FREE T4 (FREE THYROXINE) 1.26 ng/dl (0.64-1.79)
[2019-01-17] MEDS: REGADENOSON 0.4 MG/5 ML SYG (09:07)
[2019-01-17] MEDS: RANOLAZINE (SR) 500 MG TAB PO ×2 (09:43→20:41)
[2019-01-17] MEDS: VALPROIC ACID 250 MG CAP PO ×2 (09:43→20:41)
[2019-01-17] MEDS: ISOSORBIDE DINITRATE 20 MG TAB PO ×3 (09:44→20:41)
[2019-01-17] MEDS: FUROSEMIDE 40 MG TAB PO (09:44)
[2019-01-17] MEDS: GABAPENTIN 300 MG CAP PO ×3 (09:44→20:41)
[2019-01-17] MEDS: ASPIRIN 81 MG TAB PO (09:45)
[2019-01-17] MEDS: FISH OIL 1,000 MG CAP PO ×2 (09:45→21:29)
[2019-01-17] MEDS: HEPARIN 5,000 UNIT/1 ML VIAL SC ×2 (09:49→20:49)
[2019-01-17] MEDS: INSULIN GLARGINE [LANTus] (100 UNITS/ML) SYG SC (09:50)
[2019-01-17] MEDS: INSULIN ASPART [NOVOLOG] 3 ML PEN SC ×7 (09:51→20:50)
[2019-01-17] MEDS: ATORVASTATIN 80 MG TAB PO (20:41)
[2019-01-17] MEDS: MONTELUKAST 10 MG TAB PO (20:41)
[2019-01-17] MEDS: DAPTOMYCIN 470 MG in SOD CHLORIDE 0.9% 100 ML IVPB (21:23)
[2019-01-18] MEDS: morphine 2 MG INJ IV ×5 (03:22→21:15)
[2019-01-18] MEDS: INSULIN ASPART [NOVOLOG] 3 ML PEN SC ×7 (08:00→20:31)
[2019-01-18] MEDS: RANOLAZINE (SR) 500 MG TAB PO ×2 (08:36→20:27)
[2019-01-18] MEDS: GABAPENTIN 300 MG CAP PO ×3 (08:36→20:26)
[2019-01-18] MEDS: FISH OIL 1,000 MG CAP PO ×2 (08:36→20:27)
[2019-01-18] MEDS: FUROSEMIDE 40 MG TAB PO (08:36)
[2019-01-18] MEDS: VALPROIC ACID 250 MG CAP PO ×2 (08:36→20:27)
[2019-01-18] MEDS: ISOSORBIDE DINITRATE 20 MG TAB PO ×3 (08:37→20:27)
[2019-01-18] MEDS: ASPIRIN 81 MG TAB PO (08:37)
[2019-01-18] MEDS: HEPARIN 5,000 UNIT/1 ML VIAL SC ×2 (08:41→20:34)
[2019-01-18] MEDS: INSULIN GLARGINE [LANTus] (100 UNITS/ML) SYG SC (08:43)
[2019-01-18] MEDS: INFLUENZA VIRUS VACCINE 0.5 ML (DISPENSING) IM* ×2 (15:35→15:37)
[2019-01-18] MEDS: MONTELUKAST 10 MG TAB PO (20:26)
[2019-01-18] MEDS: ATORVASTATIN 80 MG TAB PO (20:27)
[2019-01-18] MEDS: DAPTOMYCIN 470 MG in SOD CHLORIDE 0.9% 100 ML IVPB (21:15)
[2019-01-19] MEDS: morphine 2 MG INJ IV ×2 (04:57→10:09)
[2019-01-19] MEDS: INSULIN GLARGINE [LANTus] (100 UNITS/ML) SYG SC (08:35)
[2019-01-19] MEDS: INSULIN ASPART [NOVOLOG] 3 ML PEN SC ×2 (08:36→08:37)
[2019-01-19] MEDS: GABAPENTIN 300 MG CAP PO (08:37)
[2019-01-19] MEDS: HEPARIN 5,000 UNIT/1 ML VIAL SC (08:37)
[2019-01-19] MEDS: FISH OIL 1,000 MG CAP PO (08:37)
[2019-01-19] MEDS: ASPIRIN 81 MG TAB PO (08:37)
[2019-01-19] MEDS: FUROSEMIDE 40 MG TAB PO (08:38)
[2019-01-19] MEDS: RANOLAZINE (SR) 500 MG TAB PO (08:38)
[2019-01-19] MEDS: VALPROIC ACID 250 MG CAP PO (08:38)
[2019-01-19] MEDS: ISOSORBIDE DINITRATE 20 MG TAB PO (08:48)
== END 2019-01-19 12:15 | disposition home health service (06) | DRG 853 ==
LOC: 5EC 01-15 01:02 → E/R 14:48 → TEL 21:23
PROVIDERS: Internal Medicine
PROC: 07BJ3ZX Excision of Left Inguinal Lymphatic, Percutaneous Approach, Diagnostic (ICD-10-PCS; principal; 2019-01-10)
DX: A41.9 Sepsis, unspecified organism (principal); N17.0 Acute kidney failure with tubular necrosis; J13 Pneumonia due to Streptococcus pneumoniae; L03.116 Cellulitis of left lower limb; E10.65 Type 1 diabetes mellitus with hyperglycemia; I12.9 Hypertensive chronic kidney disease with stage 1 through stage 4 chronic kidney disease, or unspecified chronic kidney disease; E10.22 Type 1 diabetes mellitus with diabetic chronic kidney disease; N18.9 Chronic kidney disease, unspecified; I25.5 Ischemic cardiomyopathy; E78.5 Hyperlipidemia, unspecified; R59.0 Localized enlarged lymph nodes; J20.9 Acute bronchitis, unspecified; I25.119 Atherosclerotic heart disease of native coronary artery with unspecified angina pectoris; B95.4 Other streptococcus as the cause of diseases classified elsewhere; J44.9 Chronic obstructive pulmonary disease, unspecified; I73.9 Peripheral vascular disease, unspecified; F17.210 Nicotine dependence, cigarettes, uncomplicated; E66.9 Obesity, unspecified; Z68.38 Body mass index [BMI] 38.0-38.9, adult; I25.2 Old myocardial infarction; Z79.82 Long term (current) use of aspirin; Z79.4 Long term (current) use of insulin; Z95.5 Presence of coronary angioplasty implant and graft
CPT/HCPCS: 36415; 71045; 74176; 76775; 78452; 80048; 80053; 80061; 80202; 81001; 81003; 82550; 82553; 82570; 82784; 82962; 83036; 83605; 83615; 83735; 83880; 84100; 84155; 84165; 84300; 84439; 84443; 84484; 84560; 85025; 85610; 85730; 86320; 86703; 87040; 87070; 87075; 87086; 87102; 87116; 87400; 88307; 88313; 89190; 90686; 92610; 93005; 93017; 93306; 93922; 93970; 94644; 94664; 96374; 96375; 97110; 97116; 97162; 97530; 99291-25